=== PATIENT | female | born 1985 | race Caucasian/White ===

== ENCOUNTER 2022-09-30 10:07 | Outpatient (CLI) | payer OTHER | END 2022-09-30 10:17 | disposition home or self-care (01) | LOC: RX STUDY 10:07 | PROVIDERS: ATTEND Obstetrics & Gynecology Reproductive Endocrinology | DX: N93.0 Postcoital and contact bleeding (principal) ==

== ENCOUNTER 2023-05-04 08:37 | Day surgery (SDC) | payer OTHER | END 2023-05-04 15:25 | disposition home or self-care (01) | LOC: CIR.AMB 08:37 | PROVIDERS: ATTEND Obstetrics & Gynecology | DX: N93.8 Other specified abnormal uterine and vaginal bleeding (principal); Z20.822 Contact with and (suspected) exposure to COVID-19 ==

== ENCOUNTER 2023-08-12 06:34 | Day surgery (SDC) | payer OTHER ==
[2023-08-08 15:46] LABS: INR < 0.93; PARTIAL THROMBOPLASTIN TIME 28.3 SECONDS (22.0-34.0); PROTHROMBIN TIME 9.8 SECONDS (9.0-11.5)
[2023-08-12] MEDS ORDERED: CEFOXITIN SODIUM 2,000 MG VIAL IV ONE ×2 (10:39→12:00)
[2023-08-12] MEDS ORDERED: POVIDONE-IODINE 118 ML BOTT TOP ONE ×2 (10:39→12:00)
[2023-08-12] MEDS ORDERED: PROMETHAZINE HCL 50 MG/ML AMPUL IM ONE (11:30)
[2023-08-12] MEDS ORDERED: MORPHINE SULFATE 4 MG/ML VIAL IV PRN (11:30)
== END 2023-08-12 16:00 | disposition home or self-care (01) ==
LOC: CIR.AMB 06:34
PROVIDERS: ATTEND Obstetrics & Gynecology
DX: O02.1 Missed abortion (principal)

== ENCOUNTER 2025-04-01 13:00 | Day surgery (SDC) | payer OTHER ==
[2025-03-29 13:41] LABS: BASO % 0.9 % (0.1-1.2); EOS # 0.32 (0.04-0.54); EOS % 7.3 % (0.7-7.0); LYMPH # 1.87 (1.18-3.74); LYMPH % 42.9 % (19.3-53.1); MEAN PLATELET VOLUME 9.70 fl (9.4-12.4); MONO # 0.32 (0.24-0.82); MONO % 7.3 % (4.7-12.5); NEUT # 1.80 (1.56-6.13); NEUT % 41.4 % (34.0-71.1); RED CELL DISTRIBUTION WIDTH 13.0 % (11.6-14.4)
[2025-03-29 14:08] LABS: INR 0.97
[2025-03-29 14:11] LABS: ALT/SGPT 20.0 U/L (12-78); AST/SGOT 18.0 U/L (15-37); BILIRUBIN TOTAL 0.54 mg/dL (0.3-1.2); BUN CREA RATIO 15.0 (7.0-25.0); CREATININE SERUM 0.74 mg/dL (0.55-1.02); GFR 88.31; GLOBULINA 3.7 G/DL (2.4-3.5); GLUCOSE FASTING 95.0 mg/dL (65-100); OSMOLALITY SERUM 279.0 MOSM/KG (275-295)
[2025-04-01] MEDS ORDERED: POVIDONE-IODINE 118 ML BOTT TOP ONE (13:01)
[2025-04-01] MEDS ORDERED: CEFAZOLIN SODIUM 1,000 MG VIAL ONE (13:01)
[2025-04-01] MEDS ORDERED: PROMETHAZINE HCL 50 MG/ML AMPUL IM ONE (14:45)
== END 2025-04-01 18:10 | disposition home or self-care (01) ==
LOC: CIR.AMB 13:00
PROVIDERS: ATTEND Obstetrics & Gynecology
DX: O03.4 Incomplete spontaneous abortion without complication (principal)